=== PATIENT | male | born 1995 | race Caucasian/White ===

== ENCOUNTER 2021-07-06 18:50 | Inpatient (IN) | payer MEDICAID, SELFPAY ==
[2021-07-06 19:02] VITALS: BMI 28.3
--- NOTE | 2021-07-06 20:45 | PC.ADMIT ---
[facility] Admission Note: The patient,Toro Bee,26 y/o, was given written information regarding hospital policies, unit procedures and contact persons. Patient's smoking status: patient presents on 96 hour hold direct admit for SI. he overdosed on fentanyl last month in which he was admitted to a psych facility for 28 days. he got out, went to an inpatient treatment facility which left in under 24 hours. he went to OD again on fentanyl and went to the ED and was sent to [facility]. patient states he has been SI basically my whole life . patient began drinking alcohol and smoking weed at the age of 7. he started taking illicit opiates, cocaine, meth around the age of 15, states he will use anything he can get his hands on. he has been taking psych medications since the age of 4. patient is delayed and tearful, particularly when asking about abuse history which he said I don't want to get into it. He has a recent right wrist fracture in which he has a brace on. patient is taking risperdone and not taking other meds.
[2021-07-06 22:00] VITALS: BP 122/81; PULSE 68; RESP 18; O2SAT 98
[2021-07-07 05:59] VITALS: BP 144/90; PULSE 86; RESP 17; O2SAT 96
--- NOTE | 2021-07-07 11:00 | P.NPUHP_ITS ---
Providers/Chief Complaint Admitting Physician: Shukri Plummer MD HPI [facility] History of Present Illness Toro Bee is a 26 year old male admitted through an outside emergency department with the following report: 26-year-old male presents to the emergency room via EMS complaining of agitation and suicidal ideation.? Patient states that he was recently discharged from [facility] for bipolar and schizophrenia and has been prescribed an antipsychotic and Ativan.? Patient states that he is feeling overwhelmed and is having thoughts of wanting to and overdose did talk by standby who called the police department who called EMS and brought him here.? Patient states he has been cutting his left forearm but no recent cuts.? Patient also complains of right wrist pain stating he has an old scaphoid fracture that has been recommended for surgery but he did not follow up for surgery since he was using fentanyl at the time.? He is complaining of an increase pain and is requesting a splint.? Patient is agreeable to talk to a psychiatrist did decline Ativan at this time.? Patient denies any recent drug use. He is unclear why he went into the hospital at [facility]. He said that he was paranoid. He could not really describe what that meant. He does not know if he has schizophrenia or bipolar disorder. He thinks those are just labels. He denies hearing voices. He says that if they treated him with risperidone which he has been on for some time. He thinks they did not change the dose. He is not sure what the dose is. We also gave him gabapentin and Ativan which he did not take on discharge. He does not like those and does not want to take them. He says that he was doing fairly well when he left the hospital. He accidentally overdosed on fentanyl a couple of days after he left the hospital. He said that he did not do the overdose because he was not doing well. It was just an accident. He said that he almost and they had to bring him back. He says that that has changed his perspective on many things including street drugs. He said he has been having suicidal ideation for years they have been more intense the last few days. He said having survived the fentanyl overdose made him feel a little bit better about being alive. He says that he feels risperidone has been helpful for him. He has been on it since he is 4 years old. He initially said that antidepressants generally did not help him. However later he said that he felt that Zoloft had been helpful and would like to take that again. He said that he was diagnosed with ADHD and prescribed Concerta and risperidone when he was 4 years old. I told him that generally risperidone would be prescribed when a 4-year-old was also diagnosed with either bipolar, autism spectrum or oppositional defiant disorder. He said probably bipolar. PAST PSYCHIATRIC HISTORY As above SOCIAL HISTORY As above Meds NPU Home Medications Medication Instructions Recorded Confirmed Last Taken Type No Known Home Medications 07/06/21 07/06/21 Unknown History Mental Status Exam MSE Comments: This is a 26-year-old mildly overweight male who appears approximately his stated age and is in no acute distress. He was pleas ant and cooperative with the evaluation. He is fairly well groomed in hospital scrubs. psychomotor activity is normal. Speech is at a regular rate and rhythm, normal volume, good articulation, not pr essured. Alert, oriented X3 Attention and concentration appear to be good. Memory is intact Mood is depressed. Affect is somewhat constricted and mildly dysphoric Thought process is logical and goal-directed. Thought content: Denies auditory and visual hallucinations. No delusions or paranoia are noted. No current suicidal ideation but had suicidal ideation yesterday and no homicidal ideation. Fund of knowledge is average. Insight and judgment appear to be fair. Impulse control is fair. Vitals/I&O/Wt Last Vital Signs Pulse 86 07/07/21 05:59 Resp 17 07/07/21 05:59 BP 144/90 07/07/21 05:59 Pulse Ox 96 07/07/21 05:59 Weight last 48 hrs Weight 84.368 kg A&P Assessment and plan (1) Bipolar 1 disorder, depressed: Status: Acute (2) Suicidal ideation: Status: Acute Plan This is a 26-year-old male who is diagnosed with bipolar disorder and ADHD at age 4 and started on Concerta and risperidone who reports suicidal ideation and worsening in the last few days Plan: 1. Continue current medication. Continue risperidone and restart Zoloft. 2. Continue every 15 minute checks for safety. 3. Encourage individual, group and milieu therapies. 4. Encourage sober living treatment after discharge at the highest level of care to which he is willing to commit. 5. We will monitor for safety for himself in the community prior to discharge. Involuntary Hold Information 96 Hour Hold: 96 Hour Involuntary Admission: Yes Attestations [facility]PU Medical Necessity Statement*: Inpatient hospitalization is medically necessary and the clinically appropriate intervention at this time. We will initiate medications and make changes as indicated. He will be in the hospital for over 2 midnights. 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
[2021-07-07 14:00] VITALS: BP 118/79; PULSE 85; RESP 17; TEMP 36.7; O2SAT 95
[2021-07-07 19:53] VITALS: BP 149/85; PULSE 80; RESP 19; TEMP 36.4; O2SAT 96
[2021-07-08 06:00] VITALS: BP 127/87; PULSE 76; RESP 19; TEMP 36.6; O2SAT 98
--- NOTE | 2021-07-08 08:50 | PC.NURSE ---
Resting in bed, arouse to voice. Denies pain. Denies SI/HI and AVH at this time. Continues to isolate and withdrawn. States he slept well. Brace to right hand in place. Pulses palpable, cap refill less than 3 seconds. Moves fingers with ease. Declined breakfast, states, I just want to sleep. Informed if he needed anything to please let me know, states he will.
--- NOTE | 2021-07-08 11:57 | W.PM.NPUPNS ---
Subjective NPU Subjective: We tried to contact his hospital to find out what medications they had given him in the most recent admission but were not successful. He says today that he is doing better and wants to go home. He was told that he did not seem any better. He was just lying in bed and looking off into space for some time after I told him that we could not find out what medication he had been on previously. He said that now he does not want to take medication. He wants to go home. He asked what he needed to do in order to do that. He was told that he needed to be more active and interact with other people and we need to see that he is no longer paranoid. He then got up and went to look for something to eat. Mental Status Exam MSE Comments: This is a 26-year-old mildly overweight male who appears approximately his stated age and is in no acute distress. He was found in bed at 11:30 AM. He aroused easily to his name but did not get up until after we were done talking. He mostly just stared off into space with a significant delay in answering questions. He is fairly well groomed in hospital scrubs. psychomotor activity decreased. Speech is at a regular rate and rhythm, normal volume, good articulation, not pressured. Alert, oriented. Attention and concentration appear to be decreased. He seemed to be preoccupied with something but would not say what it was Memory is intact Mood is depressed. Affect is somewhat constricted and mildly dysphoric Thought process is logical and goal-directed. Thought content: Denies auditory and visual hallucinations. No delusions or paranoia are noted. No current suicidal ideation but had suicidal ideation yesterday and no homicidal ideation. Fund of knowledge is average. Insight and judgment appear to be fair. Impulse control is fair. Cognition: Patient Appearance: Appropriate Ability to Follow Directions: Excellent Patient Orientation (long list): Person, Place, Time, Name and Year Comprehension Ability: No Impairment Hallucination Type: None Delusion Description: Not Present Thought Process: Appropriate Affect: Affect Description: Appropriate and Anxious Behavior: Patient Behavior: Appropriate and Cooperative Speech Pattern: Appropriate and Clear Vitals/I&O/Wt Last Vital Signs Temp 97.8 F 07/08/21 06:00 Pulse 76 07/08/21 06:00 Resp 19 H 07/08/21 06:00 BP 127/87 07/08/21 06:00 Pulse Ox 98 07/08/21 06:00 Weight last 48 hrs Weight 84.368 kg A&P Assessment and plan (1) Bipolar 1 disorder, depressed: Status: Acute (2) Suicidal ideation: Status: Acute Plan This is a 26-year-old male who is diagnosed with bipolar disorder and ADHD at age 4 and started on Concerta and risperidone who reports suicidal ideation and worsening in the last few days Plan: 1. Continue current medication. Continue risperidone and restart Zoloft. 2. Continue every 15 minute checks for safety. 3. Encourage individual, group and milieu therapies. 4. Encourage sober living treatment after discharge at the highest level of care to which he is willing to commit. 5. We will monitor for safety for himself in the community prior to discharge. Involuntary Hold Information 96 Hour Hold: 96 Hour Involuntary Admission: Yes Attestations NPU Medical Necessity Statement*: Inpatient hospitalization is medically necessary and the clinically appropriate intervention at this time. We will initiate medications and make changes as indicated. 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
[2021-07-08 14:00] VITALS: BP 131/90; PULSE 76; RESP 18; TEMP 36.6; O2SAT 95
[2021-07-08 20:25] VITALS: BP 154/108; PULSE 67; RESP 17; TEMP 36.7; O2SAT 97
[2021-07-08] MEDS: risperiDONE 2 mg Tablet PO (20:47)
[2021-07-09 06:00] VITALS: BP 130/89; PULSE 61; RESP 17; TEMP 36.6; O2SAT 97
--- NOTE | 2021-07-09 07:43 | W.PM.NPUPNS ---
Subjective NPU Subjective: He was sitting in the day room at 7:15 AM. He waved at me when I was down the henriquez. He says that he slept well last night. He appreciated the risperidone 2 mg at bedtime. He says he normally takes it during the day. His mother gave us a list of his most recent medications. It was risperidone 2 mg twice a day, Depakote 1000 mg twice a day, hydroxyzine 50 mg twice a day. Trazodone 100 mg at bedtime and Ativan 1 mg 3 times daily. She did not think that he should take the Ativan because there were 45 of them missing from his bottle. Mental Status Exam MSE Comments: This is a 26-year-old mildly overweight male who appears approximately his stated age and is in no acute distress. He was found in the day room waiting on breakfast at 7:15 AM. He was pleasant and cooperative with the evaluation. He is fairly well groomed in hospital scrubs. psychomotor activity is normal. Speech is at a regular rate and rhythm, normal volume, good articulation, not pressured. Alert, oriented. Attention and concentration appear to be normal Memory is intact Mood is depressed. Affect is somewhat constricted and mildly dysphoric Thought process is logical and goal-directed. Thought content: Denies auditory and visual hallucinations. No delusions or paranoia are noted. No current suicidal ideation and no homicidal ideation. Fund of knowledge is average. Insight and judgment appear to be fair. Impulse control is fair. Cognition: Patient Appearance: Appropriate Ability to Follow Directions: Excellent Patient Orientation (long list): Person, Place, Time, Name and Year Comprehension Ability: No Impairment Hallucination Type: None Delusion Description: Not Present Thought Process: Appropriate Affect: Affect Description: Appropriate Behavior: Patient Behavior: Appropriate Speech Pattern: Appropriate Vitals/I&O/Wt Last Vital Signs Temp 97.8 F 07/09/21 06:00 Pulse 61 07/09/21 06:00 Resp 17 07/09/21 06:00 BP 130/89 07/09/21 06:00 Pulse Ox 97 07/09/21 06:00 A&P Assessment and plan (1) Bipolar 1 disorder, depressed: Status: Acute (2) Suicidal ideation: Status: Acute Plan This is a 26-year-old male who is diagnosed with bipolar disorder and ADHD at age 4 and started on Concerta and risperidone who reports suicidal ideation and worsening in the last few days Plan: 1. Continue current medication. Increase risperidone 2 mg twice daily and restart Zoloft 50 mg every morning 2. Continue every 15 minute checks for safety. 3. Encourage individual, group and milieu therapies. 4. Encourage sober living treatment after discharge at the highest level of care to which he is willing to commit. 5. We will monitor for safety for himself in the community prior to discharge. Involuntary Hold Information 96 Hour Hold: 96 Hour Involuntary Admission: Yes Attestations NPU Medical Necessity Statement*: Inpatient hospitalization is medically necessary and the clinically appropriate intervention at this time. We will initiate medications and make changes as indicated. 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
[2021-07-09] MEDS: sertraline 50 mg Tablet PO (09:18)
[2021-07-09] MEDS: risperiDONE 2 mg Tablet PO ×2 (09:18→17:43)
[2021-07-09 14:00] VITALS: BP 130/87; PULSE 82; RESP 17; TEMP 36.7; O2SAT 97
[2021-07-09 19:51] VITALS: BP 130/90; PULSE 74; RESP 18; TEMP 36.4; O2SAT 97
[2021-07-10 06:00] VITALS: BP 127/87; PULSE 75; RESP 17; TEMP 36.6; O2SAT 97
[2021-07-10] MEDS: risperiDONE 2 mg Tablet PO ×2 (09:27→17:44)
[2021-07-10] MEDS: sertraline 50 mg Tablet PO (09:27)
--- NOTE | 2021-07-10 11:26 | P.NPUPN_ITS ---
Subjective NPU Subjective: His first dose of Zoloft yesterday and risperidone was increased to 2 mg twice a day for the first time yesterday. He says that those medications are helping him. They are slowing down his thoughts and helping them be more structured. He is sleeping well. He is getting along well with the other patients. Mental Status Exam MSE Comments: This is a 26-year-old mildly overweight male who appears approximately his stated age and is in no acute distress. He was found in the day room talking with another patient at 11 AM. He said that they were praying together earlier. He was pleasant and cooperative with the evaluation. He is fairly well groomed in hospital scrubs. psychomotor activity is normal. Speech is at a regular rate and rhythm, normal volume, good articulation, not pressured. Alert, oriented. Attention and concentration appear to be normal Memory is intact Mood is good. Affect is euthymic Thought process is logical and goal-directed. Thought content: Denies auditory and visual hallucinations. No delusions or paranoia are noted. No current suicidal ideation and no homicidal ideation. Fund of knowledge is average. Insight and judgment appear to be fair. Impulse control is fair. Cognition: Patient Appearance: Appropriate and No Eye Contact Ability to Follow Directions: Excellent Patient Orientation (long list): Person, Place, Name and Year Comprehension Ability: No Impairment Hallucination Type: None Delusion Description: Not Present Thought Process: Appropriate Affect: Affect Description: [place], Depressed and Flat Behavior: Patient Behavior: Appropriate and Cooperative Speech Pattern: Appropriate and Clear Vitals/I&O/Wt Last Vital Signs Temp 97.8 F 07/10/21 06:00 Pulse 75 07/10/21 06:00 Resp 17 07/10/21 06:00 BP 127/87 07/10/21 06:00 Pulse Ox 97 07/10/21 06:00 A&P Assessment and plan (1) Bipolar 1 disorder, depressed: Status: Acute (2) Suicidal ideation: Status: Acute Plan This is a 26-year-old male who is diagnosed with bipolar disorder and ADHD at age 4 and started on Concerta and risperidone who reports suicidal ideation and worsening in the last few days Plan: 1. Continue current medication. Increase risperidone 2 mg twice daily and restart Zoloft 50 mg every morning 2. Continue every 15 minute checks for safety. 3. Encourage individual, group and milieu therapies. 4. Encourage sober living treatment after discharge at the highest level of care to which he is willing to commit. 5. We will monitor for safety for himself in the community prior to discharge. Involuntary Hold Information 96 Hour Hold: 96 Hour Involuntary Admission: Yes Attestations NPU Medical Necessity Statement*: Inpatient hospitalization is medically necessary and the clinically appropriate intervention at this time. We will initiate medications and make changes as indicated. 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
[2021-07-10 14:00] VITALS: BP 117/79; PULSE 71; RESP 17; TEMP 36.6; O2SAT 98
[2021-07-10 22:00] VITALS: BP 128/85; PULSE 65; RESP 20; TEMP 36.3; O2SAT 99
[2021-07-11 05:23] VITALS: BP 122/83; PULSE 63; RESP 17; TEMP 37.2; O2SAT 100
[2021-07-11] MEDS: risperiDONE 2 mg Tablet PO ×2 (08:57→17:12)
[2021-07-11] MEDS: sertraline 50 mg Tablet PO (08:57)
--- NOTE | 2021-07-11 10:19 | PC.NURSE ---
In day area conversing with staff. Denies SI/HI and AVH at this time. Does report 3/10 right wrist pain but declines mediations. Brace is secured and in place to right wrist. Able to move fingers with ease. Cap refil less that 3 seconds. Pulses palpable to right radial. Appears to be in good spirts and states he will be discharging to his mothers house with services.
--- NOTE | 2021-07-11 13:52 | P.NPUPN_ITS ---
Subjective NPU Subjective: He continues to feel that he is much better. He says it is completely out of his character and ridiculous to consider suicide. His mood is significantly better. He is making plans for the future. Mental Status Exam MSE Comments: This is a 26-year-old mildly overweight male who appears approximately his stated age and is in no acute distress. He was found in the day room talking with another patient at 11 AM. He said that they were praying together earlier. He was pleasant and cooperative with the evaluation. He is fairly well groomed in hospital scrubs. psychomotor activity is normal. Speech is at a regular rate and rhythm, normal volume, good articulation, not pressured. Alert, oriented. Attention and concentration appear to be normal Memory is intact Mood is good. Affect is euthymic Thought process is logical and goal-directed. Thought content: Denies auditory and visual hallucinations. No delusions or paranoia are noted. No current suicidal ideation and no homicidal ideation. Fund of knowledge is average. Insight and judgment appear to be fair. Impulse control is fair. Cognition: Patient Appearance: Appropriate and No Eye Contact Ability to Follow Directions: Excellent Patient Orientation (long list): Person, Place, Name and Year Comprehension Ability: No Impairment Hallucination Type: None Delusion Description: Not Present Thought Process: Appropriate Affect: Affect Description: Appropriate Behavior: Patient Behavior: Appropriate and Cooperative Speech Pattern: Appropriate and Clear Vitals/I&O/Wt Last Vital Signs Temp 98.9 F 07/11/21 05:23 Pulse 63 07/11/21 05:23 Resp 17 07/11/21 05:23 BP 122/83 07/11/21 05:23 Pulse Ox 100 07/11/21 05:23 A&P Assessment and plan (1) Bipolar 1 disorder, depressed: Status: Acute (2) Suicidal ideation: Status: Acute Plan This is a 26-year-old male who is diagnosed with bipolar disorder and ADHD at age 4 and started on Concerta and risperidone who reports suicidal ideation and worsening in the last few days Plan: 1. Continue current medication. Increase risperidone 2 mg twice daily and restart Zoloft 50 mg every morning 2. Continue every 15 minute checks for safety. 3. Encourage individual, group and milieu therapies. 4. Encourage sober living treatment after discharge at the highest level of care to which he is willing to commit. 5. We will monitor for safety for himself in the community prior to discharge. Involuntary Hold Information 96 Hour Hold: 96 Hour Involuntary Admission: Yes Attestations NPU Medical Necessity Statement*: Inpatient hospitalization is medically necessary and the clinically appropriate intervention at this time. We will initiate medications and make changes as indicated. 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
[2021-07-11 14:00] VITALS: BP 125/83; PULSE 104; RESP 17; TEMP 36.8; O2SAT 96
--- NOTE | 2021-07-11 14:45 | PC.SOCIAL ---
Patient did not attend group.
[2021-07-11] MEDS: nicotine 2 mg Gum BUCCAL (17:43)
[2021-07-11 19:57] VITALS: BP 121/85; PULSE 95; RESP 19; TEMP 36.6; O2SAT 95
[2021-07-12 06:00] VITALS: BP 137/94; PULSE 75; RESP 17; TEMP 36.7; O2SAT 96
[2021-07-12 09:31] VITALS: BP 137/94; PULSE 75; RESP 17; TEMP 36.7; O2SAT 96
--- NOTE | 2021-07-12 13:54 | P.NPUDS_ITS ---
Diagnoses at Discharge Discharge Diagnosis (1) Bipolar 1 disorder, depressed: Status: Acute (2) Suicidal ideation: Status: Resolved Reason for Visit Reason for Visit: Brief History: History of Present Illness Toro Bee is a 26 year old male admitted through an outside emergency department with the following report: 26-year-old male presents to the emergency room via EMS complaining of agitation and suicidal ideation.? Patient states that he was recently discharged from [facility] for bipolar and schizophrenia and has been prescribed an antipsychotic and Ativan.? Patient states that he is feeling overwhelmed and is having thoughts of wanting to and overdose did talk by kush who called the police department who called EMS and brought him here.? Patient states he has been cutting his left forearm but no recent cuts.? Patient also complains of right wrist pain stating he has an old scaphoid fracture that has been recommended for surgery but he did not follow up for surgery since he was using fentanyl at the time.? He is complaining of an increase pain and is requesting a splint.? Patient is agreeable to talk to a psychiatrist did decline Ativan at this time.? Patient denies any recent drug use. He is unclear why he went into the hospital at [facility].? He said that he was paranoid.? He could not really describe what that meant.? He does not know if he has schizophrenia or bipolar disorder.? He thinks those are just labels.? He denies hearing voices.? He says that if they treated him with risperidone which he has been on for some time.? He thinks they did not change the dose.? He is not sure what the dose is.? We also gave him gabapentin and Ativan which he did not take on discharge.? He does not like those and does not want to take them.? He says that he was doing fairly well when he left the hospital.? He accidentally overdosed on fentanyl a couple of days after he left the hospital.? He said that he did not do the overdose because he was not doing well.? It was just an accident.? He said that he almost and they had to bring him back.? He says that that has changed his perspective on many things including street drugs.? He said he has been having suicidal ideation for years they have been more intense the last few days.? He said having survived the fentanyl overdose made him feel a little bit better about being alive.? He says that he feels risperidone has been helpful for him.? He has been on it since he is 4 years old.? He initially said that antidepressants generally did not help him.? However later he said that he felt that Zoloft had been helpful and would like to take that again.? He said that he was diagnosed with ADHD and prescribed Concerta and risperidone when he was 4 years old.? I told him that generally risperidone would be prescribed when a 4-year-old was also diagnosed with either bipolar, autism spectrum or oppositional defiant disorder.? He said probably bipolar. Hospital Course Hospital Course He slowly acclimated to the individual, group and milieu therapies provided. Risperidone was increased to 2 mg twice daily and he was started on Zoloft 50 mg daily. He tolerated these doses and showed steady improvement during his stay. He was able to contract for safety outside hospital prior to discharge. During the hospitalization, patient had routine laboratory studies which were within normal limits except for few outliers. Additionally there was a general medical evaluation which was also within normal limits and revealed no new acute processes. Discharge Summary: At the time of discharge, lethality was denied and psychosis was resolving. Mood and anxiety were well managed. Patient endorsed a plan to follow-up with the aftercare recommendations of the treatment team. Patient was evaluated and deemed to be absent credible lethality, and had achieved the maximum benefit from an inpatient hospitalization, so was discharged. Involuntary Hold Information 96 Hour Hold: 96 Hour Involuntary Admission: Yes Mental Status Exam MSE Comments: This is a 26-year-old mildly overweight male who appears approximately his stated age and is in no acute distress. He was found in the day room talking with another patient at 11 AM. He said that they were praying together earlier. He was pleasant and cooperative with the evaluation. He is fairly well groomed in hospital scrubs. psychomotor activity is normal. Speech is at a regular rate and rhythm, normal volume, good articulation, not pressured. Alert, oriented. Attention and concentration appear to be normal Memory is intact Mood is good. Affect is euthymic Thought process is logical and goal-directed. Thought content: Denies auditory and visual hallucinations. No delusions or paranoia are noted. No current suicidal ideation and no homicidal ideation. Fund of knowledge is average. Insight and judgment appear to be fair. Impulse control is fair. Cognition: Patient Appearance: Appropriate and No Eye Contact Ability to Follow Directions: Excellent Patient Orientation (long list): Person, Place, Name and Year Comprehension Ability: No Impairment Hallucination Type: None Delusion Description: Not Present Thought Process: Appropriate Affect: Affect Description: Appropriate Behavior: Patient Behavior: Appropriate and Cooperative Speech Pattern: Appropriate and Clear Discharge Data Vitals: Last Vital Signs Temp 98.9 F 07/11/21 05:23 Pulse 63 07/11/21 05:23 Resp 17 07/11/21 05:23 BP 122/83 07/11/21 05:23 Pulse Ox 100 07/11/21 05:23 Discharge Plan Discharge Patient Disposition: Home Condition: Stable Prescriptions: New risperidone 2 mg Tablet 2 mg PO BID 30 Days Qty: 60 1RF sertraline 50 mg Tablet 50 mg PO DAILY 30 Days Qty: 30 1RF Discharge Orders: Discharge Order (Routine); Ordered 07/11/21 Ordered By: Shukri Plummer Referrals: [facility] [Other] - 07/20/21 1:40 pm (TANNA Carter) Discharge Diet: Regular Discharge Activity: Resume usual activity Patient Instructions: Opioid Safety Discharge Attestations NPU Time Spent in Discharge Care*: less than 30 min Specific Discharge Activities: Specific discharge activities: educating patient, discussing with rn field case manager/social workers/dc planners, documenting/other paperwork and evaluating patient/reviewing data Coding Level of Care Code Acute [facility] [place] note Diagnoses Bipolar 1 disorder, depressed F31.9 Suicidal ideation R45.851
== END 2021-07-12 08:20 | disposition home or self-care (01) | DRG 885 ==
PROVIDERS: Admitting Provider Psychiatry & Neurology Psychiatry; Visit Provider Psychiatry & Neurology Psychiatry
DX: F31.9 Bipolar disorder, unspecified (principal); R45.851 Suicidal ideations; F90.9 Attention-deficit hyperactivity disorder, unspecified type; Z91.52 Personal history of nonsuicidal self-harm
CPT/HCPCS: 97165